=== PATIENT | female | born 1945 | race Native Hawaiian/Other Pacific Islander ===

== ENCOUNTER 2020-08-29 08:28 | Outpatient (CLI) | payer OTHER ==
[~2020-08-29 08:28] MED LIST: LETR2.5T OR; TENUATE PO; TRIBENZOR PO; VENL75CA2 PO
== END 2020-08-29 19:55 | disposition home or self-care (01) ==
LOC: LABW 08:28 → EDBD 08:28 → LABW 19:55
PROVIDERS: ATTEND Physician Assistant
DX: M79.601 Pain in right arm (principal)

== ENCOUNTER 2020-09-09 13:53 | Outpatient (CLI) | payer OTHER | END 2020-09-09 21:53 | disposition home or self-care (01) | LOC: MRI 13:53 | PROVIDERS: ATTEND Physician Assistant | DX: M25.521 Pain in right elbow (principal) ==